=== PATIENT | female | born 1990 | race Caucasian/White ===

== ENCOUNTER → 2023-09-18 07:12 | Outpatient (REF) | payer OTHER, SELFPAY | LOC: PNTC 07:12 | PROVIDERS: ATTENDING PHYSICIAN Obstetrics & Gynecology | DX: Z34.82 Encounter for supervision of other normal pregnancy, second trimester (principal); O09.30 Supervision of pregnancy with insufficient antenatal care, unspecified trimester | CPT/HCPCS: 76811 ==

== ENCOUNTER → 2023-11-02 09:29 | Outpatient (REF) | payer OTHER, SELFPAY | LOC: PNTC 09:29 | PROVIDERS: ATTENDING PHYSICIAN Obstetrics & Gynecology | DX: O09.30 Supervision of pregnancy with insufficient antenatal care, unspecified trimester (principal); Z36.0 Encounter for antenatal screening for chromosomal anomalies | CPT/HCPCS: 76816 ==

== ENCOUNTER 2023-11-15 09:18 | Observation (INO) | payer OTHER, SELFPAY ==
[2023-11-15 09:35] VITALS: BMI 27.3
[2023-11-15 09:36] VITALS: BP 111/66
== END 2023-11-15 10:16 | disposition home or self-care (01) ==
LOC: LDRP 09:18
PROVIDERS: ADMITTING PHYSICIAN Student in an Organized Health Care Education/Training Program
DX: O47.1 False labor at or after 37 completed weeks of gestation (principal); Z3A.39 39 weeks gestation of pregnancy
CPT/HCPCS: 36415; 86850; 86900; 86901; G0378

== ENCOUNTER 2023-11-27 19:41 | Inpatient (IN) | payer OTHER, SELFPAY ==
[2023-11-27] MEDS: LR 1000 IV (00:44)
[2023-11-27 20:15] VITALS: BP 107/63; BMI 27.5
[2023-11-27 21:18] LABS: % Basophils 0.3 % (0-2); % Eosinophils 0.7 % (0-6); % Lymphocytes 19.4 % (20.5-51.1); % Monocytes 6.8 % (1.7-9.3); % Neutrophils 71.8 % (42.2-75.2); Absolute Eosinophils 0.1 10^3/uL (0-0.7); Absolute Immature Granulocytes 0.1 10^3/uL (0-0.05); Absolute Lymphocytes 2.2 10^3/uL (1.2-3.4); Absolute Monocytes 0.8 10^3/uL (0.1-0.6); Absolute Neutrophils 8.3 10^3/uL (1.4-6.5); Hematocrit 33.3 % (37.0-47.0); Hemoglobin 11.5 g/dL (12.0-16.0); Mean Corp Hgb Conc. 34.5 g/dL (33.0-37.0); Mean Corpuscular Hgb 29.4 pg (27.0-31.0); Mean Corpuscular Volume 85.2 fL (81.0-99.0); Mean Platelet Volume 10.5 fL (7.4-10.4); Nucleated Red Blood Cells % 0 %; Platelet Count 189 10^3/uL (130-400); Red Blood Cell Count 3.91 10^6/uL (4.20-5.40); Red Cell Dist. Width 12.8 % (11.5-14.5); White Blood Cell Count 11.5 10^3/uL (4.8-10.8)
[2023-11-27] MEDS: CYTOTEC 50 MICROGRAM VAG (21:20)
[2023-11-28] MEDS: SUBLIMAZE 100 MCG EPIDURAL (00:11)
[2023-11-28] MEDS: FENTANYL/BUPIVACAINE 100 EPIDURAL (00:12)
[2023-11-28] MEDS: LR 1000 IV (00:46)
[2023-11-28] MEDS: XYLOCAINE 1% 10 ML INFIL (02:20)
[2023-11-28] MEDS: PITOCIN 30 UNITS/NSS 500 ML IV (03:05)
[2023-11-28] MEDS: PRENATAL PLUS 1 TABLET PO (09:59)
[2023-11-28] MEDS: MOTRIN 600 MG PO ×2 (11:11→19:15)
[2023-11-29] MEDS: MOTRIN 600 MG PO (02:09)
[2023-11-29 03:21] LABS: Hematocrit 28.5 % (37.0-47.0); Hemoglobin 9.9 g/dL (12.0-16.0)
[2023-11-29] MEDS: PRENATAL PLUS 1 TABLET PO (08:07)
== END 2023-11-29 13:07 | disposition home or self-care (01) | DRG 807 ==
LOC: LDRP 19:41
PROVIDERS: ADMITTING PHYSICIAN Obstetrics & Gynecology
PROC: 0HQ9XZZ Repair Perineum Skin, External Approach (ICD-10-PCS; 2023-11-27)
PROC: 10E0XZZ Delivery of Products of Conception, External Approach (ICD-10-PCS; 2023-11-27)
DX: O70.0 First degree perineal laceration during delivery (principal); Z37.0 Single live birth; Z3A.40 40 weeks gestation of pregnancy
CPT/HCPCS: 88307; 85014; 85018; 85025; 86780; 86850; 86900; 86901